=== PATIENT | male | born 1990 | race Caucasian/White ===

== ENCOUNTER 2020-07-17 00:22 | Emergency (ER) | payer BC, SELFPAY ==
[2020-07-17 00:22] VITALS: BP 140/103; PULSE 87; RESP 18; TEMP 36.6; O2SAT 98; BMI 28.9
[2020-07-17] MEDS: DiphenhydrAMINE 50 MG/ML Syringe 25 MG IV (00:45)
[2020-07-17] MEDS: Metoclopramide 10 MG/2 ML Vial IV (00:45)
[2020-07-17] MEDS: Ketorolac 15 MG/ML Vial IV (00:45)
--- NOTE | 2020-07-17 00:48 | EX.ED.VIS.HA ---
HPI History of Present Illness Chief Complaint: Headache Informant: patient Onset/Context/Timing Onset: Today Context: Sudden Timing: Continuous Quality -Headache: Positive for Similar Prior Headaches and Throbbing Location: Global Current Severity: Severe Maximum Severity: Severe Worsened by: Light, sound Relieved by: Nothing Associated Symptoms/Injury Associated Symptoms: Positive for Nausea, Vomiting, Photophobia and - (Patient describes bilateral scintillating scotoma); Negative for Fever, Sore Throat, Sinus Pressure, Numbness, Tingling, Preceding Aura, Visual Changes, Blurred Vision and Visual Loss Injury - HOLLIDAY: Negative for Direct Trauma Narrative Narrative: Patient is a 29-year-old male with history of migraine headaches. He attempted to take Naprosyn; however, he states he vomited the Naprosyn. He is not been seen in an emergency room for headache for many years, 10-20. This was not a thunderclap headache. He does report photophobia and sonophobia. He denies rhinorrhea, congestion or postnasal drainage. No sore throat. Nuys neck pain or neck stiffness. He denies trouble with speech or swallowing. He denies paresthesia, anesthesia medics. Denies cardiac or respiratory symptoms. Does report nausea and vomiting. He denies diarrhea. He denies urologic symptoms. Nuys myalgias or arthralgias. He denies rash. He denies ill contacts. Prior similar symptoms: Yes Recent Illness/Hospitalization: No PFSH [facility] Medical History (Updated 07/17/20 @ 01:[address] Martínez Granda MD) Migraine aura without headache Migraines Home Medications naproxen 375 mg PO BID PRN 07/17/20 [History Last Taken Unknown] Allergy/AdvReac Type Severity Reaction Status Date / Time No Known Allergies Allergy Verified 05/13/15 20:54 no surgical history Social History (Updated 07/17/20 @ 00:[address] Martínez Granda MD) Smoking Status: Current every day smoker alcohol intake: current alcohol intake frequency: a few times a month substance use type: does not use ROS ROS ED Constitutional Constitutional ED: Denies chills, fever(s), subjective or sweats Eyes Eyes: Denies blurry vision, change in vision or diplopia ENT ENT ED: Denies ear pain, rhinorrhea or sore throat Cardiovascular Cardiovascular: Denies chest pain or palpitations Respiratory/Chest Respiratory/Chest: Denies cough or dyspnea Gastrointestinal Gastrointestinal: Reports nausea and vomiting; Denies abdominal pain, constipation, diarrhea or melena Genitourinary Genitourinary ED: Denies dysuria, hematuria or urinary frequency Musculoskeletal Musculoskeletal: Denies arthralgias, back pain, myalgias or neck pain Integumentary Denies rash Neurologic Neurologic: Reports headache(s); Denies paresthesias or weakness Hematologic/Lymphatic Hematologic/Lymphatic: Denies easy bleeding or easy bruising EXAM Physical Exam Const Vital Signs: 07/17/20 00:22 Temperature 97.9 F Temperature Source Oral Pulse Rate 87 Respiratory Rate 18 Blood Pressure 140/103 H Blood Pressure Mean 115 Pulse Ox 98 Oxygen Delivery Method Room Air Positive well nourished and well developed General Appearance ED: well developed; Negative for cyanotic or diaphoretic HEENT Reports normocephalic, TM's clear and moist mucous membranes atraumatic; Negative for temporal artery tenderness or vesicular rash Face and Sinus: Negative for sinus tenderness Tympanic Membrane ED: Yes TM's clear Eyes PERRL and EOMs intact bilaterally General Eye ED: Yes other Other Details: There is no APD. Cup-to-disc ratio is normal. There is no papilledema. ; Negative for pale conjunctiva or scleral icterus Neck no lymphadenopathy, supple, no meningeal signs and no JVD Resp normal respiratory effort and clear to auscultation bilaterally Cardio regular rate, regular rhythm, S1 normal heart sound, S2 normal heart sound and no murmurs GI non-tender and non-distended Auscultation: normoactive bowel sounds Palpation: soft Extremity normal to inspection, full ROM and normal capillary refill Neuro oriented x3 and CN's II-XII intact bilaterally Sensorium / Orientation: awake, alert and other Sensation is intact. Coordination / Balance: [id number] test normal Speech: speech normal Gait (Neuro): normal gait Motor Exam: strength 5/5 throughout Psych mental status grossly normal Skin Lesions: no lesions Rashes: no rashes MDM MDM MDM Narrative Medical decision making narrative: Patient presents with headache consistent with migraine without aura. He is not febrile. He has no meningeal symptoms. Will treat with IV Toradol, Reglan and Benadryl. Clinically does not appear dehydrated. Fluids were not administered. Since he has a nonfocal neurologic exam and denied thunderclap headache with no meningeal findings imaging was not obtained nor was any blood work obtained. Patient reassessed at 0123. He states he is starting to have some improvement. Will reevaluate in 10 minutes. Patient was reassessed at 0134. Patient states the headache is resolved. Discharge Plan Triage Chief Complaint: Headache ED Provider: Martínez Granda Dx/Rx/DC Orders Clinical Impression: Migraine aura without headache Instructions: ED, Migraine (Classical) Prescriptions: No Action naproxen 375 mg Tablet 375 mg PO BID PRN (Reason: Pain) RF: 0 Primary Care Provider: Care Physician,No Primary Referrals: Fast,Chika, DO [NON-STAFF] - 1-2 Weeks (Patient with history of migraines. He does not have a primary care physician and was referred to you.) Care Physician,No Primary [Primary Care Provider] - Disposition Disposition: Home, self care
[2020-07-17 01:49] VITALS: BP 121/78; PULSE 72; RESP 16; TEMP 36.8; O2SAT 97
== END 2020-07-17 01:50 | disposition home or self-care (01) ==
PROVIDERS: Emergency Provider Emergency Medicine
DX: G43.109 Migraine with aura, not intractable, without status migrainosus (principal); F17.200 Nicotine dependence, unspecified, uncomplicated
CPT/HCPCS: 96374; 96375; 99283; A4216

== ENCOUNTER 2023-03-25 09:30 | Emergency (ER) | payer OTHER, SELFPAY ==
[2023-03-25 09:32] VITALS: BP 132/87; PULSE 85; RESP 14; TEMP 37.3; O2SAT 98; BMI 26.1
--- NOTE | 2023-03-25 09:44 | ED.RN ---
THIS RN CONTACTED SERGIO AT [phone] REGARDING DRUG SCREEN. SERGIO STATES I DON'T SEE WHY HE WOULD NEED A DRUG SCREEN BUT I AM GOING TO CHECK WITH SOMEONE ELSE JUST INCASE . 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 SERGIO TO RETURN CALL IF PATIENT REQUIRES DRUG SCREEN.
--- NOTE | 2023-03-25 09:47 | EDS_ITS ---
HPI History of Present Illness Chief Complaint: Upper Extremity Injury Detail of Chief Complaint: Head injury and left elbow pain Informant: patient Occured/Mechanism Mechanism/Context: Yes injury, Yes blunt trauma, Yes fall and Yes same level fall Comment: Slipped on the ice. Fell backwards hitting head and was dazed. And complains of left elbow pain due to direct trauma Onset/Context/Timing Onset: Hours Context: Sudden Onset Timing: Continuous and Intermittent (Transient sensation of being dazed after head trauma) Quality of Pain: Dull and Aching Location: Left elbow Current Severity: Moderate Maximum Severity: Severe Worsened by: Elbow pain is worse with movement Relieved by: Nothing Associated Symptoms Associated Symptoms: Positive for Loss of Funtion; Negative for Parasthesia or Weakness Narrative Narrative: Patient is a 32-year-old [id number] male who fell at work. He slipped on ice. He fell backwards. Hit his head. He was dazed. He denies headache. He denies change in vision. He denies photophobia or sonophobia. Nuys neck pain. Nuys paresthesia, anesthesia or motor weakness. No trouble with coordination or balance. No trouble with speech or swallowing. Patient holding his left upper extremity flexed at the elbow to 100 to 110 d egrees. Axillary, median, radial and ulnar function intact. There is no pain the patient of the clavicle or AC joint. There is no pain ovation over the proximal humerus. There is pain ovation over the lateral epicondyles and olecranon process. There is no pain ovation over the radial head and specifically with supination pronation. Is no pain ovation of the medial epicondyle. No pain ovation over the distal radius ulna, carpal bones, metacarpal bones or phalanges. Tetanus Immunization: 5-10 years Prior similar symptoms: No PFSH PFSH Medical History Gastroenteritis Influenza A Migraine aura without headache Migraines Home Medications ibuprofen 200 mg capsule 200 mg PO Q6H PRN 11/10/22 [History Last Taken Unknown] Allergy/AdvReac Type Severity Reaction Status Date / Time No Known Allergies Allergy Verified 03/25/23 09:33 Social History Smoking Status: Current every day smoker tobacco type: cigarettes alcohol intake: current alcohol intake frequency: a few times a month substance use type: does not use ROS ROS ED Constitutional Constitutional ED: Denies chills or fever(s) Eyes Eyes: Reports other Details: No photophobia. ; Denies blurry vision, change in vision or diplopia ENT ENT ED: Reports other Details: No sonophobia. ; Denies ear pain, rhinorrhea or sore throat Cardiovascular Cardiovascular: Denies chest pain or palpitations Respiratory/Chest Respiratory/Chest: Denies cough or dyspnea Gastrointestinal Gastrointestinal: Denies abdominal pain, nausea or vomiting Musculoskeletal Musculoskeletal: Denies back pain or neck pain Integumentary Reports other Details: Abrasion lateral aspect of the left elbow Neurologic Neurologic: Denies headache(s), paresthesias or weakness Hematologic/Lymphatic Hematologic/Lymphatic: Denies easy bleeding or easy bruising EXAM Physical Exam Const Vital Signs: 03/25/23 09:32 Temperature 99.2 F H Temperature Source Temporal Pulse Rate 85 Respiratory Rate 14 Blood Pressure 132/87 H Blood Pressure Mean 102 Pulse Ox 98 Oxygen Delivery Method Room Air Positive well nourished and well developed General Appearance ED: well developed and NAD; Negative for cyanotic or diaphoretic HEENT Reports moist mucous membranes normocephalic and atraumatic Eyes PERRL and EOMs intact bilaterally Eyes Narrative: Extraocular muscle intact. Sclera is anicteric. There is no subconjunctival hemorrhage. Neck full ROM and supple Resp normal respiratory effort Cardio regular rate and regular rhythm Back/Spine no CVA tenderness Cervical Spine: cervical spine tenderness Extremity Negative for normal to inspection Extremity Narrative: Abrasion noted proximity of the lateral epicondyles left elbow. There is pain ovation over the lateral epicondyle olecranon process. There is no pain to palpation over the clavicle AC joint or proximal humerus. There is no pain ovation over the distal radius ulna, carpal bones, metacarpal bones or phalanges. Axillary, median, radial and ulnar function intact. Radial pulses palpable. Neuro oriented x3, CN's II-XII intact bilaterally, moves all extremities, no focal motor deficits and no sensory deficits noted Neuro Narrative: There is no clonus or Babinski sign noted. Gait was observed as he walked to his room and was normal. Sensorium / Orientation: alert Psych mental status grossly normal Skin Trauma: abrasion MDM MDM MDM Narrative Medical decision making narrative: Per the [place] CT head rule and the [place] rule imaging of the head is not warranted or indicated. C-spine was cleared per Nexus criteria. Will obtain x-ray of the elbow to evaluate for contusion versus fracture. Patient was medicated with hydrocodone for his pain. Patient was informed that he does have a concussion. Radiography Chest X-Ray - ED: Read by ED Physician (Three-view x-ray of the left elbow was independent reviewed interpreted by me at 1010 as negative. There is no evidence of fracture, subluxation dislocation. There is no anterior posterior fat pad. There is no foreign body noted.) Discharge Plan Triage Chief Complaint: Upper Extremity Injury ED Provider: Martínez Granda Dx/Rx/DC Orders Clinical Impression: Concussion with brief LOC, Contusion of left elbow, initial encounter, Abrasion of left elbow, Abrasion forearm Instructions: ED Abrasion, ED Concussion, ED Contusion, Elbow Prescriptions: No Action ibuprofen 200 mg capsule 200 mg PO Q6H PRN Primary Care Provider: Care Physician,No Primary Referrals: [facility] [Group of Physicians] - 2 Days Care Physician,No Primary [Primary Care Provider] - Activity Restrictions/Additional Instructions: 1. Apply ice to areas of discomfort for the next 3 to 5 days. Apply ice 6-10 times a day 2. You will feel worse over the next 24 to 48 hours. 3. You will hurt in more places and you presently do. Disposition Disposition: Home, Self Care
[2023-03-25] MEDS: HYDROcodone Bitartrate/Apap 5/325 Tablet PO (09:49)
--- NOTE | 2023-03-25 10:00 | RAD_ITS ---
STUDY: X-RAY - LEFT ELBOW REASON FOR EXAM: Male, 32 years old. Injury. Pain. TECHNIQUE: 3 view(s) of the elbow. COMPARISON: None. FINDINGS: Normal visualized humerus, radius and ulna. Normal radiocapitellar and ulnotrochlear articulations. Normal soft tissues. RAD/Elbow min 3 Views IMPRESSION: Normal x-ray examination of the elbow. Electronically Signed: Bertrand Armenta MD at 10:42 EST ,
== END 2023-03-25 10:55 | disposition home or self-care (01) ==
LOC: ED 10:22
PROVIDERS: Emergency Provider Emergency Medicine; Visit Provider Emergency Medicine
DX: S06.0X1A Concussion with loss of consciousness of 30 minutes or less, initial encounter (principal); S50.02XA Contusion of left elbow, initial encounter; W00.0XXA Fall on same level due to ice and snow, initial encounter; S50.819A Abrasion of unspecified forearm, initial encounter; F17.200 Nicotine dependence, unspecified, uncomplicated
CPT/HCPCS: 73080; 99282

== ENCOUNTER 2024-12-09 08:35 | Emergency (ER) | payer OTHER, SELFPAY ==
[2024-12-09 08:36] VITALS: BP 113/96; PULSE 106; RESP 18; TEMP 36.5; O2SAT 98; BMI 24.8
--- NOTE | 2024-12-09 10:00 | EDS_ITS ---
HPI History of Present Illness Chief Complaint: Bite Narrative Narrative: Patient is a 34-year-old male who is presenting to the ER today after he was bitten to the left index finger by a stray cat. There were kittens inside a dumpster, it was raining, patient was concerned that kittens might drown, so patient was grabbing the cats and throwing them out of the dumpster. Patient went to an urgent care last night. Patient was prescribed Augmentin. Patient declined rabies shot last night. Patient did not sleep much. Patient has underlying stress anxiety panic that is untreated with daily medication. Mother is at bedside. This morning patient's had clamminess, and very anxious about rabies and came back to have a rabies shot. 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 Patient is concerned about rabies, and concerned about if he does not get a rabies shot since he left work, that he may lose his job. Patient is slightly hyperventilating, admittedly anxious and panic, no paresthesias secondary to hyperventilating. Patient has a small superficial puncture over the proximal phalanx of the left index finger, ulnar aspect. Patient has a superficial scratch over the proximal phalanx, dorsal aspect, middle of the proximal phalanx, no redness, erythema, patient has no KANAVAL signs. Patient has no pain or difficulty at all with flexion extension of the right index finger. no other acute complaints. REVIEW OF SYSTEMS: Unless otherwise stated in this report the patient's positive and negative responses for review of systems for constitutional, eyes, ENT, cardiovascular, respiratory, gastrointestinal, neurological, , musculo skeletal, and integument systems and related systems to the presenting problem are either stated in the history of present illness or were not pertinent or were negative for the symptoms and/or complaints related to the presenting medical problem. Vital signs reviewed and patient is not hypoxic. General: The patient appears well and in no apparent distress. Patient is resting comfortably on cart. Not toxic, lethargic, or listless. Skin: Warm, dry, no pallor noted. There is no rash noted. Head: Normocephalic, atraumatic Eye: Normal conjunctiva, no drainage, EOMI. PERRL. Ears, Nose, Mouth, and Throat: oral mucosa is moist. Nares patent. Mouth without vesicles. Cardiovascular: Regular Rate and Rhythm, no murmurs, gallops, or rubs Respiratory: Patient is in no distress, no accessory muscle use, lungs are clear to auscultation, no wheezing, rales or rhonchi Back: non-tender, no CVA tenderness bilaterally to percussion. NO CTLS midline or paraspinal tenderness to palpation. GI: Soft, no tenderness to palpation, no masses appreciated. No rebound, guarding, or rigidity noted. Musculoskeletal: The patient has full range of motion of all extremities and joints with no difficulty. Patient has a 1 small superficial puncture over the proximal phalanx of the left index finger, ulnar aspect. Patient has a superficial scratch over the proximal phalanx, dorsal aspect, middle of the proximal phalanx, no redness, erythema, patient has no KANAVAL signs. Patient has no pain or difficulty at all with flexion extension of the right index finger. Patient has no motor, no sensory deficits. Neurological: A&O x4, normal speech, no focal neurological deficits. Psychiatric: Cooperative [facility] Medical History Gastroenteritis Influenza A Migraine aura without headache Migraines Home Medications ?Medication ?Instructions ?Recorded ?Last Taken ?Type ibuprofen 200 mg capsule 200 mg PO Q6H PRN 11/10/22 U nknown History hydroxyzine pamoate 25 mg capsule 50 mg (2 x 25 mg) PO TID PRN PRN 12/09/24 U nknown Rx Anxiety #30 CAPSULES Allergy/AdvReac Type Severity Reaction Status Date / Time No Known Allergies Allergy Verified 12/09/24 08:36 Social History Smoking Status: Current every day smoker tobacco type: cigarettes alcohol intake: current alcohol intake frequency: a few times a month substance use type: does not use EXAM Physical Exam Const Vital Signs: 12/09/24 08:36 Temperature 97.7 F L Temperature Source Oral Pulse Rate 106 H Respiratory Rate 18 Blood Pressure 113/96 H Blood Pressure Mean 101 Pulse Ox 98 Oxygen Delivery Method Room Air MDM MDM MDM Narrative Medical decision making narrative: Patient seen and examined: Patient is already taking Augmentin. Patient's injuries are very superficial and appear minimal, but patient is requesting rabies vaccination, patient was a stray kitten. Patient saw urgent care last night, declined rabies shot last night, patient is requesting rabies shot this morning. Patient does not have the kit to quarantine Differential diagnosis includes but is not limited to: Flexor tenosynovitis, puncture wound, superficial abrasion, rabies from stray cat Procedure note: Left index finger cat bite, feared rabies Patient was cleaned, prepped, draped in normal sterile fashion. Patient had the rabies hemoglobin injected by myself into the left index finger around the small puncture wound on the volar aspect of the left index finger, over the proximal phalanx. And minimal amount around the scratch to the dorsal aspect. Social barriers to healthcare: There are no food insecurities, there is no issue with transportation, there are no insurance barriers Disposition: Patient be given rabies vaccine. Patient is currently taking Augmentin. Patient will come for the series of rabies vaccinations as well. Patient agrees to this. Patient was given 1 Ativan tablet in the ER. Patient was given a short prescription for Vistaril to help with anxiety or panic at home until he sees PCP and is placed on daily anxiolytic. Patient agrees to this. Work note given. No questions discharge Discharge Plan Triage Chief Complaint: Bite ED Provider: Huang Wallace Dx/Rx/DC Orders Clinical Impression: Cat bite of finger Instructions: Understanding Rabies, ED Cat Bite Prescriptions: New hydroxyzine pamoate 25 mg capsule 50 mg PO TID PRN PRN (Reason: Anxiety) Qty: 30 0RF No Action ibuprofen 200 mg capsule 200 mg PO Q6H PRN Stand Alone Forms: ED Work / School Excuse Primary Care Provider: Care Physician,No Primary Referrals: [facility] [Provider Group] Care Physician,No Primary [Primary Care Provider, Medical] Activity Restrictions/Additional Instructions: You are given a schedule of when you come back for your other 3 series of rabies vaccine. Follow-up with occupational health clinic Finish taking your Augmentin as prescribed You may alternate Tylenol and either Motrin, Advil, ibuprofen every 4 hours as needed for pain/fever. Take anti-inflammatories with food or drink to help buffer the medication. MAX dose of Tylenol is 3000 mg a day. MAX dose of Motrin, Advil, ibuprofen is 2400 mg a day. Print Language: Slovenian Disposition Disposition: Home, Self Care
[2024-12-09] MEDS: Rabies Immune Globulin/PF 300 UNIT/ML, 5 ML VIAL 1440 UNIT IM (10:21)
[2024-12-09 10:42] VITALS: BP 122/78; PULSE 64; RESP 18; TEMP 36.6; O2SAT 99
== END 2024-12-09 10:43 | disposition home or self-care (01) ==
PROVIDERS: Emergency Provider Emergency Medicine; Visit Provider Emergency Medicine
DX: S61.231A Puncture wound without foreign body of left index finger without damage to nail, initial encounter (principal); F17.210 Nicotine dependence, cigarettes, uncomplicated; W55.01XA Bitten by cat, initial encounter
CPT/HCPCS: 96372; 90675; 99282; 90375

== ENCOUNTER 2024-12-12 17:21 | Emergency (ER) | payer OTHER, SELFPAY ==
[2024-12-12 17:21] VITALS: BP 122/70; PULSE 80; RESP 16; TEMP 36.8; O2SAT 98; BMI 24.7
[2024-12-12 18:23] VITALS: BP 116/70; BP 118/80; PULSE 80; PULSE 88; RESP 16; RESP 18; TEMP 36.8; O2SAT 98; BMI 24.5
== END 2024-12-12 18:25 | disposition home or self-care (01) ==
LOC: ED 18:04
PROVIDERS: Emergency Provider Emergency Medicine; Visit Provider Emergency Medicine
DX: Z23 Encounter for immunization (principal)
CPT/HCPCS: 90675; 99281

== ENCOUNTER 2024-12-16 16:47 | Emergency (ER) | payer OTHER, SELFPAY ==
[2024-12-16 16:47] VITALS: BP 117/95; PULSE 101; RESP 18; TEMP 37.1; O2SAT 100; BMI 25.0
[2024-12-16 17:07] VITALS: BMI 25.0
--- OUTSIDE RECORDS SUMMARY | 2024-12-16 17:20 | XMS RPT_ITS | CCD ---
Author Organization [facility] Care Team Providers Care Biomedical Equipment Technician Name Role Phone Pay, Huang Attending Unavailable Care Physician, No Primary Primary Care Unava ilable Care Physician, No Primary Primary Care Unava ilable Pay, Huang Attending Unavailable Medications Current Medications Medication Drug Class(es) Dates Sig (Normalized) Sig (Original) ibuprofen 200 mg oral capsule (1 source) Nonsteroidal Anti-inflammatory Drug Start: 11-10-2022 take 200 mg by mouth every six hours Ibuprofen Active 200 MG PO EVERY 6 HOURS November 09, 2022 11:00pm Completed/Discontinued Medications Medication Drug Class(es) Dates Sig (Normalized) Sig (Original) acetaminophen 325 mg oral tablet (1 source) Start: 2 End: 3 take 1 tablet by mouth once Acetaminophen (Tylenol) 325 mg tablet Discontinued 325 MG PO ONCE January 30, 2022 12:00am November 10, 2022 10:26am dexamethasone 6 mg oral tablet (1 source) Corticosteroid Start: 2 End: 3 take 1 tablet by mouth once daily Dexamethasone (Decadron) 6 mg tablet Discontinued 6 MG PO DAILY March 05, 2021 12:00am November 10, 2022 10:27am Methylprednisolone (1 source) Corticosteroid Start: 2 End: 3 Methylprednisolone Discontinued 0 PO per package directions August 13, 2021 11:00pm November 10, 2022 10:27am PO PER PKG DIR naproxen 375 mg oral tablet (1 source) Nonsteroidal Anti-inflammatory Drug Start: 1 End: 1 take 375 mg by mouth twice daily Naproxen Discontinued 375 MG PO TWICE A DAY July 16, 2020 11:00pm February 15, 2021 11:16am oseltamivir 75 mg oral capsule (1 source) Neuraminidase Inhibitor Start: 2 End: 2 take 1 capsule by mouth twice daily Oseltamivir (Tamiflu) 75 mg capsule Discontinued 75 MG PO TWICE A DAY 10 January 30, 2022 12:00am February 04, 2022 12:04am Problems Problem Classification Problem Date Documented Da te Episodic/Chronic Allergic reactions (1 source) Contact dermatitis; Translations: [Unspecified contact dermatitis, unspecified cause] 08-14-2021 Episodic Headache; including migraine (1 source) Migraine aura without headache ; Translations: [Migraine with aura, not intractable, without status migrainosus] 07-17-2020 Chronic Influenza (1 source) Influenza due to Influenza A virus; Translations: [Influenza due to other identified influenza virus with other respiratory manifestations] 01-30-2022 Episodic Intracranial injury (1 source) Concussion with less than 1 hour loss of consciousness; Translations: [Concussion with loss of consciousness of 30 minutes or less, initial encounter] 03-25-2023 Episodic Noninfectious gastroenteritis (1 source) Gastroenteritis; Translations: [Noninfective gastroenteritis and colitis, unspecified] 01-08-2022 Episodic Other lower respiratory disease (1 source) Cough; Translations: [Cough] 03-05-2021 Episodic Other upper respiratory infections (1 source) Acute sinusitis; Translations: [Acute sinusitis, unspecified] 02-15-2021 Episodic Superficial injury; contusion (2 sources) Abrasion of left elbow, initial encounter; Translations: [Abrasion of left elbow] 03-25-2023 Episodic Unclassified (1 source) Contusion of left elbow, initial encounter 03-25-2023 Viral infection (1 source) Disease caused by 2019-nCoV; Translations: [COVID-19] 03-05-2021 Episodic Results Test Name Value Interpretation Reference Range Facil y Emergency Department Summary on 12-09-2024 Emergency Department Summary [facility] Medical Records Department [address] [place] [address] Emergency Department Summary 12/09/24 MR#: [id number] Acct: [id number] Name: JULIETTETEENALULA MONTAÑO Rep #: [id number] : 1990 34 From: Huang Pay DO PCP: Care Physician,No Primary Status:REG ER Location: ED HPI History of Present Illness Chief Complaint: Bite Narrative Narrative: Patient is a 34-year-old male who is presenting to the ER today after he was bitten to the left index finger by a stray cat. There were kittens inside a dumpster, it was raining, patient was concerned that kittens might drown, so patient was grabbing the cats and throwing them out of the dumpster. Patient went to an urgent care last night. Patient was prescribed Augmentin. Patient declined rabies shot last night. Patient did not sleep much. Patient has underlying stress anxiety panic that is untreated with daily medication. Mother is at bedside. This morning patient's had clamminess, and very anxious about rabies and came back to have a rabies shot. Patient works at a [employer] where there are a lot of weddings this weekend. Patient is concerned about rabies, and concerned about if he does not get a rabies shot since he left work, that he may lose his job. Patient is slightly hyperventilating, admittedly anxious and panic, no paresthesias secondary to hyperventilating. Patient has a small superficial puncture over the proximal phalanx of the left index finger, ulnar aspect. Patient has a superficial scratch over the proximal phalanx, dorsal aspect, middle of the proximal phalanx, no redness, erythema, patient has no KANAVAL signs. Patient has no pain or difficulty at all with flexion extension of the right index finger. no other acute complaints. REVIEW OF SYSTEMS: Unless otherwise stated in this report the patient's positive and negative responses for review of systems for constitutional, eyes, ENT, cardiovascular, respiratory, gastrointestinal, neurological, , musculoskeletal, and integument systems and related systems to the presenting problem are either stated in the history of present illness or were not pertinent or were negative for the symptoms and/or complaints related to the presenting medical problem. Vital signs reviewed and patient is not hypoxic. General: The patient appears well and in no apparent distress. Patient is resting comfortably on cart. Not toxic, lethargic, or listless. Skin: Warm, dry, no pallor noted. There is no rash noted. Head: Normocephalic, atraumatic Eye: Normal conjunctiva, no drainage, EOMI. PERRL. Ears, Nose, Mouth, and Throat: oral mucosa is moist. Nares patent. Mouth without vesicles. Cardiovascular: Regular Rate and Rhythm, no murmurs, gallops, or rubs Respiratory: Patient is in no distress, no accessory muscle use, lungs are clear to auscultation, no wheezing, rales or rhonchi Back: non-tender, no CVA tenderness bilaterally to percussion. NO CTLS midline or paraspinal tenderness to palpation. GI: Soft, no tenderness to palpation, no masses appreciated. No rebound, guarding, or rigidity noted. Musculoskeletal: The patient has full range of motion of all extremities and joints with no difficulty. Patient has a 1 small superficial puncture over the proximal phalanx of the left index finger, ulnar aspect. Patient has a superficial scratch over the proximal phalanx, dorsal aspect, middle of the proximal phalanx, no redness, erythema, patient has no KANAVAL signs. Patient has no pain or difficulty at all with flexion extension of the right index finger. Patient has no motor, no sensory deficits. Neurological: A O x4, normal speech, no focal neurological deficits. Psychiatric: Cooperative [facility] Medical History Gastroenteritis Influenza A Migraine aura without headache Migraines Home Medications ???Medication ???Instructions ???Recorded ???Last Taken ???Type ibuprofen 200 mg capsule 200 mg PO Q6H PRN 11/10/22 Unknown History hydroxyzine pamoate 25 mg capsule 50 mg (2 x 25 mg) PO TID PRN PRN 12/09/24 Unknown Rx Anxiety #30 CAPSULES Allergy/AdvReac Type Severity Reaction Status Date / Time No Known Allergies Allergy Verified 12/09/24 08:36 Social History Smoking Status: Current every day smoker tobacco type: cigarettes alcohol intake: current alcohol intake frequency: a few times a month substance use type: does not use EXAM Physical Exam Const Vital Signs: 12/09/24 08:36 Temperature 97.7 F L Temperature Source Oral Pulse Rate 106 H Respiratory Rate 18 Blood Pressure 113/96 H Blood Pressure Mean 101 Pulse Ox 98 Oxygen Delivery Method Room Air MDM MDM MDM Narrative Medical decision making narrative (more content not included)... Normal [facility] Vital Signs Date Time Vital Sign Value Performing Clinician Denise huerta 03-25-2023 09:32-0500 Body height 170.18 cm [facility] 03-25-2023 09:32-0500 Body mass index (BMI) [Ratio] 26.1 kg/m2 [facility] 03-25-2023 09:32-0500 Body temperature 99.2 [degF] [facility] 03-25-2023 09:32-0500 Body weight 75.55 kg [facility] 03-25-2023 09:32-0500 Diastolic blood pressure 87 mm[Hg] [facility] 03-25-2023 09:32-0500 Heart rate 85 /min [facility] 03-25-2023 09:32-0500 Respiratory rate 14 /min [facility] 03-25-2023 09:32-0500 SaO2% (BldA) [Mass fraction] 98 % [facility] 03-25-2023 09:32-0500 Systolic blood pressure 132 mm[Hg] [facility] Encounters Encounter Date Encounter Type Care Provider Facility Start: 12-12-2024 End: 12-12-2024 Emergency department patient visit No Primary Care Physician Facility:[facility] Start: 12-09-2024 End: 12-09-2024 Emergency department patient visit [facility] Facility:[facility] Start: 03-25-2023 End: 03-25-2023 Emergency department patient visit [facility]-Emergency Department Work Phone: Procedures Date Procedure Procedure Detail Performing Clinician Start: 03-25-2023 Plain x-ray of elbow Plan of Treatment Date Care Activity Detail Author Start: 03-25-2023 [facility] Patient Education ED Abrasion ED Concussion ED Contusion, Elbow [facility] Work Phone: Patient referral [facility] Work Phone: Payers Date Payer Category Payer Self-pay [id number] 2024 Unknown [id number] Unknown SHAUNA [id number] Unknown [id number] Unknown [id number] Social History Date Type Detail Facility Start: 03-25-20[address] [facility] Start: 07-17-2020 Cigarettes [facility] Start: 1990 Sex Assigned At Male [facility] Discharge instructions 03-25-2023 Note Date & Type Note Facility 03-25-2023 Hospital Discharg e instructions Additional Instructions 1. Apply ice to areas of discomfort for the next 3 to 5 days. Apply ice 6-10 times a day 2. You will feel worse over the next 24 to 48 hours. 3. You will hurt in more places and you presently do. [facility] Work Phone: Discharge summary Note Date & Type Note Facility Discharge summary Note Date/Time March 25, 2023 9:52am [facility] Medical Records Department [address] [place] [address] Emergency Department Summary 03/25/23 MR#: [id number] Acct: [id number] Name: TEENA SEGOVIA Rep #:[id number] : 1990 32 From: Martínez Granda MD PCP: Care Physician,No Primary Status :PRE ER Location: ED HPI History of Present Illness Chief Complaint: Upper Extremity Injury Detail of Chief Complaint: Head injury and left elbow pain Informant: patient Occured/Mechanism Mechanism/Context: Yes injury, Yes blunt trauma, Yes fall and Yes same level fall Comment: Slipped on the ice. Fell backwards hitting head and was dazed. And complains of left elbow pain due to direct trauma Onset/Context/Timing Onset: Hours Context: Sudden Onset Timing: Continuous and Intermittent (Transient sensation of being dazed after head trauma) Quality of Pain: Dull and Aching Location: Left elbow Current Severity: Moderate Maximum Severity: Severe Worsened by: Elbow pain is worse with movement Relieved by: Nothing Associated Symptoms Associated Symptoms: Positive for Loss of Funtion; Negative for Parasthesia or Weakness Narrative Narrative: Patient is a 32-year-old [id number] male who fell at work. He slipped on ice. He fell backwards. Hit his head. He was dazed. He denies headache. He denies change in vision. He denies photophobia or sonophobia. Nuys neck pain. Nuys paresthesia, anesthesia or motor weakness. No trouble with coordination or balance. No trouble with speech or swallowing. Patient holding his left upper extremity flexed at the elbow to 100 to 110 degrees. Axillary, median, radial and ulnar function intact. There is no pain the patient of the clavicle or AC joint. There is no pain ovation over the proximal humerus. There is pain ovation over the lateral epicondyles and olecranon process. There is no pain ovation over the radial head and specifically with supination pronation. Is no pain ovation of the medial epicondyle. No pain ovation over the distal radius ulna, carpal bones, metacarpal bones or phalanges. Tetanus Immunization: 5-10 years Prior similar symptoms: No PFSH PFSH Medical History Gastroenteritis Influenza A Migraine aura without headache Migraines Home Medications ibuprofen 200 mg capsule 200 mg PO Q6H PRN 11/10/22 [History Last Taken Unknown] Allergy/AdvReac Type Severity Reaction Status Date / Time No Known Allergies Allergy Verified 03/25/23 09:33 Social History Smoking Status: Current every day smoker tobacco type: cigarettes alcohol intake: current alcohol intake frequency: a few times a month substance use type: does not use ROS ROS ED Constitutional Constitutional ED: Denies chills or fever(s) Eyes Eyes: Reports other Details: No photophobia. ; Denies blurry vision, change in vision or diplopia ENT ENT ED: Reports other Details: No sonophobia. ; Denies ear pain, rhinorrhea or sore throat Cardiovascular Cardiovascular: Denies chest pain or palpitations Respiratory/Chest Respiratory/Chest: Denies cough or dyspnea Gastrointestinal Gastrointestinal: Denies abdominal pain, nausea or vomiting Musculoskeletal Musculoskeletal: Denies back pain or neck pain Integumentary Reports other Details: Abrasion lateral aspect of the left elbow Neurologic Neurologic: Denies headache(s), paresthesias or weakness Hematologic/Lymphatic Hematologic/Lymphatic: Denies easy bleeding or easy bruising EXAM Physical Exam Const Vital Signs: 03/25/23 09:32 Temperature 99.2 F H Temperature Source Temporal Pulse Rate 85 Respiratory Rate 14 Blood Pressure 132/87 H Blood Pressure Mean 102 Pulse Ox 98 Oxygen Delivery Method Room Air Positive well nourished and well developed General Appearance ED: well developed and NAD; Negative for cyanotic or diaphoretic HEENT Reports moist mucous membranes normocephalic and atraumatic Eyes PERRL and EOMs intact bilaterally Eyes Narrative: Extraocular muscle intact. Sclera is anicteric. There is no subconjunctival hemorrhage. Neck full ROM and supple Resp normal respiratory effort Cardio regular rate and regular rhythm Back/Spine no CVA tenderness Cervical Spine: cervical spine tenderness Extremity Negative for normal to inspection Extremity Narrative: Abrasion noted proximity of the lateral epicondyles left elbow. There is pain ovation over the lateral epicondyle olecranon process. There is no pain to palpation over the clavicle AC joint or proximal humerus. There is no pain ovation over the distal radius ulna, carpal bones, metacarpal bones or phalanges. Axillary, median, radial and ulnar function intact. Radial pulses palpable. Neuro oriented x3, CN's II-XII intact bilaterally, moves all extremities, no focal motor deficits and no sensory deficits noted Neuro Narrative: There is no clonus or Babinski sign noted. Gait was observed as he walked to his room and was normal. Sensorium / Orientation: alert Psych mental status grossly normal Skin Trauma: abrasion MDM MDM MDM Narrative Medical decision making narrative: Per the [place] CT head rule and the Kennard rule imaging of the head is not warranted or indicated. C-spine was cleared per Nexus criteria. Will obtain x-ray of the elbow to evaluate for contusion versus fracture. Patient was medicated with hydrocodone for his pain. Patient was informed that he does have a concussion. Radiography Chest X-Ray - ED: Read by ED Physician (Three-view x-ray of the left elbow was independent reviewed interpreted by me at 1010 as negative. There is no evidence of fracture, subluxation dislocation. There is no anterior posterior fat pad. There is no foreign body noted.) Discharge Plan Triage Chief Complaint: Upper Extremity Injury ED Provider: Martínez Granda Dx/Rx/DC Orders Clinical Impression: Concussion with brief LOC, Contusion of left elbow, initial encounter, Abrasionof left elbow, Abrasion forearm Instructions: ED Abrasion, ED Concussion, ED Contusion, Elbow Prescriptions: No Action ibuprofen 200 mg capsule 200 mg PO Q6H PRN Primary Care Provider: Care Physician,No Primary Referrals: Corporate,Care [Group of Physicians] - 2 Days Care Physician,No Primary [Primary Care Provider] - Activity Restrictions/Additional Instructions: 1. Apply ice to areas of discomfort for the next 3 to 5 days. Apply ice 6-10 times a day 2. You will feel worse over the next 24 to 48 hours. 3. You will hurt in more places and you presently do. Disposition Disposition: Home, Self Care What to do if you have Problems For any increased pain, shortness of breath, bleeding, nausea or vomiting, chestpain, or any unexpected problems, contact your Primary Care Provider. Call [facility] ([phone]) or report to the closest Emergency Room. Call 911 if necessary. 03/25/23 1013 <Electronically signed by Martínez Granda MD> Cosigner Signature (if applicable): CC: No Primary Care Physician ~ Signed [facility] Work Phone: Evaluation note Note Date & Type Note Facility Evaluation note No assessment information availa ble [facility] Work Phone: Chief Complaint and Reason for Visit Chief Complaint LEFT ELBOW Advance Directives No Advanced Directives Records Found Advance Directive Response Recorded Date/ Time Living Will No March 25 9:52am Power of Public Health Professor No March 25, 2023 9:52am Summary Purpose Family History No Family History Records Found Additional Source Comments Care Teams (unrecognized sec tion and content) Team Status: Active Member Role Status Dates No Primary Care Physician Family Provider Active No Primary Care Physician Primary Care Provider Active Team Status: Inactive Member Role Status Dates No Primary Care Physician Primary Care Provider Active Dr. Martínez Granda MD Emergency Provider Active Goals (unrecognized section and content) Goals may be documented in a n alternate section (unrecognized sect ion and content) No Status Records Found INFORMATION SOURCE (unrecogn ized section and content) DATE CREATED AUTHOR 12/14/2024 [facility] FOR RECORDS PERTAINING TO PATIENTS WHO ARE OR HAVE BEEN ENROLLED IN A CHEMICAL DEPENDENCY/SUBSTANCEABUSE PROGRAM, SOME INFORMATION MAY BE OMITTED. This clinical summary was aggregated from multiple sources. Caution should be exercised in using it in the provision of clinical care. This summary normalizes information from multiple sources, and as a consequence, information in this document may materially change the coding, format and clinical context of patient data. In addition, data may be omitted in some cases. CLINICAL DECISIONS SHOULD BE BASED ON THE PRIMARY CLINICAL RECORDS. [facility] [employer] [facility]. provides no warranty or guarantee of the accuracy or completeness of information in this document.
== END 2024-12-16 17:28 | disposition home or self-care (01) ==
LOC: ED 17:10
PROVIDERS: Emergency Provider Emergency Medicine; Visit Provider Emergency Medicine
DX: Z23 Encounter for immunization (principal)
CPT/HCPCS: 90675; 96372; 99281

== ENCOUNTER 2024-12-23 16:34 | Outpatient (CLI) | payer OTHER, SELFPAY ==
[2024-12-23 16:35] VITALS: BP 120/70; PULSE 77; RESP 16; TEMP 37; O2SAT 100; BMI 25.0
[2024-12-23 16:53] VITALS: BP 128/70; PULSE 77; RESP 16; TEMP 37; O2SAT 100
--- OUTSIDE RECORDS SUMMARY | 2024-12-23 17:03 | XMS RPT_ITS | CCD ---
Author Organization [facility] Inform ion Partnership [facility] Care Team Providers Care Substance Abuse Services Director Name Role Phone Care Physician, No Primary Primary Care Unava ilable Pay, Huang Attending Unavailable Care Physician, No Primary Primary Care Unava ilable Pay, Huang Attending Unavailable Pay, Huang Attending Unavailable Care Physician, No Primary Primary Care Unava ilable Medications Current Medications Medication Drug Class(es) Dates [...] 12:04am Problems Problem Classification Problem Date Documented Date Episodic/Chronic Allergic reactions (1 source) Contact dermatitis; Translations: [Unspecified contact dermatitis, unspecified cause] 08-14-2021 Episodic Headache; including migraine (1 source) Migraine aura without headache ; Translations: [Migraine with aura, not intractable, without status migrainosus] 07-17-2020 Chronic Immunizations and screening for infectious disease (1 source) Encounter for immunization; Translations: [Encounter for immunization] Onset: 12-21-2024 Episodic Influenza (1 source) Influenza due to Influenza [...] [Noninfective gastroenteritis and colitis, unspecified] 01-08-2022 Episodic Open wounds of extremities (1 source) Puncture wound without foreign body of left index finger without damage to nail, initial encounter; Translations: [Puncture wound without foreign body of left index finger without damage to nail, initial encounter] Onset: 12-15-2024 Episodic Other lower respiratory disease (1 source) [...] Results Test Name Value Interpretation Reference Range Ernst price Emergency Department Summary on 12-09-2024 Emergency Department Summary [facility] Medical Records Department [address] [place] [address] Emergency Department Summary 12/09/24 MR#: [id number] Acct: [id number] Name: TEENA SEGOVIA Rep #: [id number] : 1990 34 From: Huang Wallace DO PCP: Care Physician,No Primary Status:REG ER [...] a rabies shot. 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 Psychiatric: Cooperative [facility] Medical History Gastroenteritis Influenza A Migraine aura [...] making narrative (more content not included)... Normal [facility] Vital Signs Date Time Vital Sign Value Performing Clinician Faci lity 03-25-2023 09:32-0500 Body height 170.18 cm [facility] 03-25-2023 09:32-0500 Body mass index (BMI) [Ratio] 26.1 kg/m2 [facility] 03-25-2023 09:32-0500 Body temperature 99.2 [degF] [facility] 03-25-2023 09:32-0500 Body weight 75.55 kg [facility] 03-25-2023 09:32-0500 Diastolic blood pressure 87 mm[Hg] [facility] 03-25-2023 09:32-0500 Heart rate 85 /min [facility] 03-25-2023 09:32-0500 Respiratory rate 14 /min [facility] 03-25-2023 09:32-0500 SaO2% (BldA) [Mass fraction] 98 % [facility] 03-25-2023 09:32-0500 Systolic blood pressure 132 mm[Hg] [facility] Encounters Encounter Date Encounter Type Care Provider Facility Start: 12-16-2024 End: 12-16-2024 Emergency department patient visit [facility] Facility:[facility] Start: 12-12-2024 End: 12-12-2024 Emergency department patient visit No Primary Care Physician Facility:[facility] Start: 12-09-2024 End: 12-09-2024 Emergency department patient visit No Primary Care Physician Facility:[facility] Start: 03-25-2023 End: 03-25-2023 Emergency department patient visit [facility] Work Phone: Procedures Date Procedure Procedure Detail Performing Clinician Start: 03-25-2023 Plain x-ray of elbow Plan of Treatment Date Care Activity Detail Author Start: 03-25-2023 [facility] Patient Education ED Abrasion ED Concussion ED Contusion, Elbow [facility] Work Phone: Patient referral [facility] Work Phone: Payers Date Payer Category Payer Self-pay [id number] 2024 Unknown [id number] Unknown ANTHEM [id number] Unknown [id number] Unknown [id number] [id number] Unknown [id number] [id number] Social History Date Type Detail Facility Start: 03-25-2023 Tobacco smoking stat [facility] Unknown if ever smoked [facility] Start: 07-17-2020 Cigarettes [facility] Start: 1990 Sex Assigned At Male [facility] Discharge instructions 03-25-2023 Note Date & Type Note Facility 03-25-2023 Hospital Discharg e instructions Additional Instructions 1. Apply ice to areas of discomfort for the next 3 to 5 days. Apply ice 6-10 times a day 2. You will feel worse over the next 24 to 48 hours. 3. You will hurt in more places and you presently do. [facility] Work Phone: Discharge summary Note Date & Type Note Facility Discharge summary Note Date/Time March 25, 2023 9:52am [facility] Medical Records Department [address] [place] [address] Emergency Department Summary 03/25/23 MR#: [id number] Acct: [id number] Name: TEENA SEGOVIA Rep #:[id number] : 1990 32 From: Martínez Granda [...] Weakness Narrative Narrative: Patient is a 32-year-old ymvcm-hzhs-fydarhem male who fell at work. He slipped [...] Narrative Medical decision making narrative: Per the [place] CT head rule and the [place] rule imaging of the head is not [...] your Primary Care Provider. Call [facility] ([phone]) or report to the closest Emergency Room. Call 911 if necessary. 03/25/23 1013 <Electronically signed by Martínez Granda MD> Cosigner Signature (if applicable): CC: No Primary Care Physician ~ Signed [facility] Work Phone: Evaluation note Note Date & Type Note Facility Evaluation note No assessment information availa ble [facility] Work Phone: Chief Complaint and Reason for Visit Chief Complaint LEFT ELBOW Advance Directives No Advanced Directives Records Found Advance Directive Response Recorded Date/ Time Living Will No March 25 9:52am Power of Cigarette Carton Sealer No March 25, 2023 9:52am Summary Purpose [...] ized section and content) DATE CREATED AUTHOR 12/22/2024 [facility] FOR RECORDS PERTAINING TO PATIENTS WHO ARE [...] BE BASED ON THE PRIMARY CLINICAL RECORDS. [employer] provides no warranty or guarantee of the accuracy or completeness of information in this document.
--- OUTSIDE RECORDS SUMMARY | 2024-12-23 17:29 | XMS RPT_ITS | CCD ---
Author Organization [facility] Inform ion Partnership [facility] Care Team Providers Care Personal Financial Representative Name Role Phone Care Physician, No Primary [...] Department Summary on 12-09-2024 Emergency Department Summary [facility] Medical Records Department [address] [place] [address] Emergency Department Summary 12/09/24 MR#: [id number] Acct: [id number] Name: TEENA SEGOVIA Rep #: [id number] : 1990 34 From: Huang Wallace DO [...] a rabies shot. 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 Psychiatric: Cooperative [facility] Medical History Gastroenteritis Influenza A Migraine [...] making narrative (more content not included)... Normal [facility] Vital Signs Date Time Vital Sign Value Performing Clinician Faci lity 03-25-2023 09:32-0500 Body height 170.18 cm [facility] 03-25-2023 09:32-0500 Body mass index (BMI) [Ratio] 26.1 kg/m2 [facility] 03-25-2023 09:32-0500 Body temperature 99.2 [degF] [facility] 03-25-2023 09:32-0500 Body weight 75.55 kg [facility] 03-25-2023 09:32-0500 Diastolic blood pressure 87 mm[Hg] [facility] 03-25-2023 09:32-0500 Heart rate 85 /min [facility] 03-25-2023 09:32-0500 Respiratory rate 14 /min [facility] 03-25-2023 09:32-0500 SaO2% (BldA) [Mass fraction] 98 % [facility] 03-25-2023 09:32-0500 Systolic blood pressure 132 mm[Hg] [facility] Encounters Encounter Date Encounter Type Care Provider Facility Start: 12-16-2024 End: 12-16-2024 Emergency department patient visit [facility] Facility:[facility] Start: 12-12-2024 End: 12-12-2024 Emergency department patient visit No Primary Care Physician Facility:[facility] Start: 12-09-2024 End: 12-09-2024 Emergency department patient visit No Primary Care Physician Facility:[facility] Start: 03-25-2023 End: 03-25-2023 Emergency department patient visit [facility]Emer[facility] Work Phone: Procedures Date Procedure Procedure Detail Performing Clinician Start: 03-25-2023 Plain x-ray of elbow Plan of Treatment Date Care Activity Detail Author Start: 03-25-2023 [facility] Patient Education ED Abrasion ED Concussion ED Contusion, Elbow [facility] Work Phone: Patient referral [facility] Work Phone: Payers Date Payer Category Payer Self-pay [id number] 2024 Unknown [id number] Unknown ANTHEM [id number] Unknown [id number] [id number] [id number] Unknown [id number] Unknown [id number] [id number] Social History Date Type Detail Facility Start: 03-25-2023 Tobacco smoking stat [facility] Unknown if ever smoked [facility] Start: 07-17-2020 Cigarettes [facility] Start: 1990 Sex Assigned At Male [facility] Discharge instructions 03-25-2023 Note Date & Type Note Facility 03-25-2023 Hospital Discharg e instructions Additional Instructions 1. Apply ice to areas of discomfort for the next 3 to 5 days. Apply ice 6-10 times a day 2. You will feel worse over the next 24 to 48 hours. 3. You will hurt in more places and you presently do. [facility] Work Phone: Discharge summary Note Date & Type Note Facility Discharge summary Note Date/Time March 25, 2023 9:52am [facility] Medical Records Department [address] [place] [address] Emergency Department Summary 03/25/23 MR#: [id number] Acct: [id number] Name: TEENA SEGOVIA Rep #:[id number] : 1990 32 From: Martínez Granda [...] Weakness Narrative Narrative: Patient is a 32-year-old bimyh-pjhc-jyenzlkr male who fell at work. He slipped [...] Narrative Medical decision making narrative: Per the [place] CT head rule and the [place] rule imaging of the head is not [...] your Primary Care Provider. Call [facility] ([phone]) or report to the closest Emergency Room. Call 911 if necessary. 03/25/23 1013 <Electronically signed by Martínez Granda MD> Cosigner Signature (if applicable): CC: No Primary Care Physician ~ Signed [facility] Work Phone: Evaluation note Note Date & Type Note Facility Evaluation note No assessment information availa ble [facility] Work Phone: Chief Complaint and Reason for Visit Chief Complaint LEFT ELBOW Advance Directives No Advanced Directives Records Found Advance Directive Response Recorded Date/ Time Living Will No March 25 9:52am Power of Quality Assurance Qa Lab Technician No March 25, 2023 9:52am Summary Purpose [...] section and content) DATE CREATED AUTHOR 12/22/2024 [facility] FOR RECORDS PERTAINING TO PATIENTS WHO [...] BE BASED ON THE PRIMARY CLINICAL RECORDS. [employer] provides no warranty or guarantee of the accuracy or completeness of information in this document.
== END 2024-12-23 17:06 | disposition home or self-care (01) ==
LOC: ED 17:24
PROVIDERS: Visit Provider Emergency Medicine
DX: Z23 Encounter for immunization (principal)
CPT/HCPCS: 90675